=== PATIENT | female | born 1965 | race Caucasian/White ===

== ENCOUNTER → 2016-07-30 | Outpatient (CLI) | payer BC ==
[2016-07-30 09:42] LABS: CH 31.7; CHCM 33.8; HCT 42.1 % (34.0-46.0); HDW 2.47; MCH 31.3 pg (25.0-35.0); MCHC 33.3 g/dL (31.0-37.0); Mean Platelet Volume 8.6; RBC 4.48 m/uL (3.80-5.40); RDW 13.2 % (11.5-15.5); WBC 4.8 k/uL (3.8-10.6)
[2016-07-30 09:59] LABS: ALT 43 U/L (9-52); AST 36 U/L (14-36); Alkaline Phosphatase 66 U/L (38-126); Anion Gap 10 mmol/L; Blood Urea Nitrogen 18 mg/dL (7-17); Calcium 9.8 mg/dL (8.4-10.2); Carbon Dioxide 30 mmol/L (22-30); Chloride 102 mmol/L (98-107); Glucose 96 mg/dL (74-99); Iron 128 ug/dL (37-170); Non-African American GFR(MDRD) >60 (>60 ml/min/1.73 sqM); Potassium 4.6 mmol/L (3.5-5.1); Sodium 142 mmol/L (137-145); Total Bilirubin 0.7 mg/dL (0.2-1.3); Total Protein 7.6 g/dL (6.3-8.2)
[2016-07-30 10:08] LABS: % Iron Saturation 43.2 % (20-50); Total Iron Binding Capacity 296 ug/dL (265-497)
[2016-07-30 10:16] LABS: Follicle Stimulating Hormone 34.3 mIU/mL
[2016-07-30 10:33] LABS: Estradiol 58 pg/mL
[2016-07-30 10:47] LABS: Vitamin B12 606 pg/mL (239-931)
== END | disposition home or self-care (01) ==
LOC: LABWHC1 08:32
PROVIDERS: ATTEND Clinical Nurse Specialist Women's Health
DX: R53.83 Other fatigue (principal); R61 Generalized hyperhidrosis
CPT/HCPCS: 36415; 80053; 82306; 82607; 82670; 82728; 83001; 83540; 83550; 84439; 84443; 84481; 85027; 86376

== ENCOUNTER → 2016-09-14 | Outpatient (CLI) | payer BC ==
--- NOTE | 2016-09-15 13:07 | MM ---
Reason for exam: follow-up at short interval from prior study. Last mammogram was performed 6 months ago. History: Family history of breast cancer in aunt at age 70 and breast cancer in mother at age 83. Took hormonal contraceptives for 2 years beginning at age 23. Physical Findings: Nurse did not find any significant physical abnormalities on exam. MG Diagnostic Mammo LT w CAD CC and MLO view(s) were taken of the left breast. Prior study comparison: March 16, 2016, bilateral MG screening mammo w CAD. February 10, 2015, bilateral MG screening mammo w CAD. January 24, 2014, bilateral MG screening mammo w CAD. The breast tissue is heterogeneously dense. This may lower the sensitivity of mammography. Heterogenous grouped calcifications continue to show slight interval increase, new from 2012. These results were verbally communicated with the patient and result sheet given to the patient on 09/15/16. ASSESSMENT: Suspicious, BI-RAD 4 RECOMMENDATION: Surgical consultation and stereotactic core biopsy of the left breast. Called Dr. Castelan with mammographic findings and has scheduled an appointment for the patient for 09/28/16 at 10:[address] Moran. Biopsy scheduled for 09/20/16 at 10:00. PRELIMINARY REPORT CALLED AND FAXED TO DR. MORAN ON 09/15/16 AT 300/TMP.
== END | disposition home or self-care (01) ==
LOC: RADMAMWWP 15:37
PROVIDERS: ATTEND Obstetrics & Gynecology
DX: R92.8 Other abnormal and inconclusive findings on diagnostic imaging of breast (principal)

== ENCOUNTER → 2016-09-20 | Day surgery (SDC) | payer BC ==
[~2016-09-20] MED LIST: BACITRACIN OINT 1 EACH PACKET TOPICAL ONE; LIDOCAINE 1% INJ 10MG/ML (20 ML MDV) ONE
--- NOTE | 2016-09-20 11:40 | MM ---
Stereotactic Mammotome core biopsy left breast. HISTORY: Calcifications left breast The calcifications in question within the left breast were targeted by the undersigned. Procedure was performed by the undersigned. Informed consent was obtained and all of the patients questions were answered. The standard sterile technique was utilized and appropriate local anesthesia was obtained with 1% licocaine. Mammotome probe was advanced and multiple core samples were obtained and sent to pathology for interpretation. Microclip marker was deployed at the site of biopsy. Post procedural mammogram demonstrates appropriate deployment of radiopaque clip marker. The patient tolerated the procedure well and left the department in stable condition. Pathology results are pending. IMPRESSION: Successful stereotactic core biopsy left breast with pathology results pending. Pathology Results: High Risk BREAST, LEFT, STEREOTACTIC CORE BIOPSY: PENDING CONSULTATION, SEE ADDENDUM/ FINAL DIAGNOSIS. ADDENDUM REPORT BREAST, LEFT, STEREOTACTIC CORE BIOPSY ([id number]; A1; 09/20/16): ATYPICAL DUCTAL HYPERPLASIA (ADH) WITH MICROCALCIFICATIONS. Recommendation Surgical consult of the left breast. MILES
== END ==
LOC: RADMAMWWP 09:22
PROVIDERS: ATTEND Surgery
DX: N60.92 Unspecified benign mammary dysplasia of left breast (principal); N64.89 Other specified disorders of breast; R92.8 Other abnormal and inconclusive findings on diagnostic imaging of breast; Z88.2 Allergy status to sulfonamides
CPT/HCPCS: 88305; 88342; 88341; 19081; A4648; J2001

== ENCOUNTER → 2016-10-01 | Outpatient (CLI) | payer BC ==
--- NOTE | 2016-10-01 13:18 | USB ---
Reason for exam: clinical finding. History: Patient has history of high-risk lesion on a previous biopsy at age 51. Family history of breast cancer in aunt at age 70 and breast cancer in mother at age 83. High risk MG stereo VAD BX LT of the left breast, September 20, 2016. Took hormonal contraceptives for 2 years beginning at age 23. Physical Findings: Nurse did not find any significant physical abnormalities on exam. US Breast LT Left breast ultrasound includes all four quadrants, the retroareolar region and axilla. Finding demonstrates a 3 x 2 x 2mm oval, cystic lesion at 12 o'clock and a 10 x 4 x 10mm irregular, solid, hypoechoic, vascular lesion at 12 o'clock. These results were verbally communicated with the patient and result sheet given to the patient on 10/01/16. ASSESSMENT: Probably benign, BI-RAD 3 RECOMMENDATION: Needle biopsy of the left breast. (high risk lesion, scheduled)
== END | disposition home or self-care (01) ==
LOC: RADUSWWP 12:18
PROVIDERS: ATTEND Surgery
DX: R92.0 Mammographic microcalcification found on diagnostic imaging of breast (principal); R92.8 Other abnormal and inconclusive findings on diagnostic imaging of breast

== ENCOUNTER 2016-10-06 11:38 | Day surgery (SDC) | payer BC ==
[2016-09-30 15:11] VITALS: BMI 22.8
[~2016-10-06 11:38] MED LIST changes: +ALPRAZolam 0.5 MG TAB PO PRN; -BACITRACIN OINT 1 EACH PACKET TOPICAL ONE; +DEXAMETHASONE SOD PHOSPHATE 10 MG/ML 1 ML VIAL IV ONE; +HEPARIN SODIUM,PORCINE 5,000 UNIT/ML 1 ML VIAL SQ ONE; +HYDROmorphone 1 MG/ML 1 ML SYRINGE IVP PRN; +LACTATED RINGERS 1,000 ML IV SCH; -LIDOCAINE 1% INJ 10MG/ML (20 ML MDV) ONE; +MIDAZOLAM 2 MG/2 ML VIAL IV PRN; +ONDANSETRON 4 MG/2 ML VIAL IVP ONE; +Pre Op ABX Message 1 EACH MISC MISCELLANE ONE
[2016-10-06] MEDS ORDERED: ALPRAZolam 0.5 MG TAB PO STA (12:02)
[2016-10-06] MEDS ORDERED: LIDOCAINE 1% 20 ML VIAL (10MG/ML) FOR IV START INTRADERMA ONE (12:15)
[2016-10-06 13:04] VITALS: TEMP 97.3
[2016-10-06 13:17] VITALS: RESP 16
[2016-10-06] MEDS ORDERED: SCOPOLAMINE 1.5MG/72HR PATCH TRANSDERM ONE (13:44)
[2016-10-06] MEDS ORDERED: LACTATED RINGERS 1,000 ML IV ONE (14:52)
[2016-10-06] MEDS ORDERED: PROPOFOL 10 MG/ML 20 ML VIAL IV ONE ×2 (15:25)
[2016-10-06] MEDS ORDERED: MIDAZOLAM 2 MG/2 ML VIAL ONE (15:25)
[2016-10-06] MEDS ORDERED: BUPIVACAIN-EPI 0.25%-1:200,000 30 ML VIAL SQ ONE (15:48)
--- NOTE | 2016-10-06 16:36 | P.OP ---
Date of Procedure: 10/06/16 Preoperative Diagnosis: Left breast atypical ductal hyperplasia at 12 o clock Postoperative Diagnosis: Same Procedure(s) Performed: Left breast wire localization biopsy at 12 o'clock position Total tissue removed = 8gm Implants: Anesthesia: MAC, local Surgeon: Laurie Moran Estimated Blood Loss (ml): 5 Pathology: other Disposition: PACU Indications for Procedure: 51 years old female status post abnormal mammogram, status post core biopsy which shows atypical ductal hyperplasia. Informed consent obtained and patient elected to undergo lumpectomy with wire localization Operative Findings: Left breast wire localization lumpectomy. Xray of the specimen confirmed that the clip and wire within the excised specimen Description of Procedure: The mammogram films from wire localization biopsy were reviewed. The patient was brought to the operating room and placed in supine position with both arms out. IV sedation was given as per anesthesia team. The excess wire was cut and the left breast was prepped using ChloraPrep. Sterile drapes were applied. A timeout was performed to verify correct patient, correct procedure and correct side. Patient was confirmed to receive perioperative IV antibiotics, heparin 5000 units subcutaneous injection for DVT prophylaxis and bilateral SCDs. A 4.3 cm horizontal skin incision was made along natural skin crease in the superior areola border. Skin flap was raised in the direction of wire. The wire entered the breast at 12 o click superiorly . A 2.3 cm circumferential breast tissue was removed around the wire and the tip of the wire was included in the specimen. The specimen was then labeled with different colors as per the protocol. It was sent off as a specimen for pathology. The resulting defect was irrigated with normal saline and checked for hemostasis. The defect measured 4.3x2.3x1cm. This was closed in 2 layers using interrupted sutures of 3-0 Vicryl followed by running subcuticular stitches of 4-0 Monocryl. Dermabond skin glue was applied. The sponge, instrument and needle count were correct 2. Phone formation received during surgery that the area of concern along with the clip and wire was included in the specimen. Patient tolerated the procedure well and was taken to post anesthesia care unit in stable condition. Final Pathologic Diagnosis BREAST, LEFT, IMAGE GUIDED WIRE LOCALIZATION AND RESECTION: PENDING CONSULATION. SEE ADDENDUM/FINAL DIAGNOSIS. Notes Review of the specimen demonstrates biopsy site change with scar and fibrocystic change including stromal fibrosis, cyst formation, adenosis, columnar cell change and duct hyperplasia. In one of the sections there are ducts containing hyperplastic duct epithelial cells creating a micropapillary pattern with cellular uniformity and a fairly well defined architecture. This is adjacent to the biopsy site. The cells themselves are low grade in appearance. Though this area is favored to not reach the diagnostic criteria for low grade duct carcinoma in situ, given the possibility of low grade duct carcinoma in situ and the therapeutic implications, the case is being sent to the [facility] for their expert opinion and the results will be issued in an addendum. The slides from the patients earlier biopsy ([id number]), that were previously seen at the [facility], will also be included. The results will be issued in addendum. @ 2027. Gross Description Specimen is labeled left breast biopsy and consists of an 8 gram oriented left lumpectomy specimen that measures 4.3 cm from superior to inferior, 2.3 cm from medial to lateral and 1 cm from anterior to posterior. A wire localization needle enters on the superior aspect and the specimen is accompanied by a radiograph and a picture, both showing a circled radiologic clip. The specimen is sufficiently inked by surgeon as follows: anterior blue , inferior green, superior black, medial yellow, lateral orange, posterior shannan. The specimen is serially sectioned beginning with the end opposite the needle insertion (green ink). Cut surfaces show areas of dense white fibrous tissue comprising approximately 40% of the parenchyma, interspersed with grossly normal yellow adipose tissue. Within the fibrous tissue, predominantly on the superior half of the specimen are multiple punctate hemorrhagic area consistent with possible previous core biopsy sites. The radiologic clip is identified within a core biopsy site (cassette 3). A distinct lesion or mass is not identified or palpated. The specimen is submitted entirely and sequentially from superior to inferior in 9 cassettes with two cross sections each in cassettes 1-3, one cross section each in cassette 4-7, two cross sections each in cassettes 8-9. 9CFNS. (VH) Fixation Time SPECIMEN FIXATIVE TYPE: SP Buffered 10% Formalin COLLECTION TO FIXATION TIME: Less than 1 hour FORMALIN FIXATION TIME: 27 hours, 6 minutes (In Fixative: 16:24, 10/06/16. Out of Fixative: 7:30 PM, , 10/07/16.) Primary invasive carcinomas are referred to the reference laboratory for ER, MT and HER2 testing and DCIS for ER and MT. Reference laboratory will automatically reflex equivocal IHC HER2 results based on CAP/ASCO HER2 Guidelines. Test results are reportedly separately. CAP/ASCO HER2 guidelines recommend that the tissue fixation window should be between 6 and 72 hours. When fixation time is prolonged beyond the 72 hours, the prolonged fixation could be a possible cause for negative results, and alternative testing methods, such as FISH, should be considered if the HER2 IHC is negative. ADDENDUM REPORT BREAST, LEFT, LUMPECTOMY ([id number]; A1-9; 10/06/2016): SEVERE ATYPICAL DUCTAL HYPERPLASIA (ADH). BIOPSY SITE CHANGES. Comment This case was sent in consultation to the [facility] and reviewed by Dr. Yazmin Casanova. Her diagnosis is as above and comments follow. We have reviewed the slides from the left breast lumpectomy from [facility]. Per your provided history, she is a 51 year-old female with atypical ductal hyperplasia diagnosed on biopsy which was reviewed here previously as [id number]- [id number]. Histologic sections from the lumpectomy demonstrate four ducts lined by a cellular proliferation of monotonous epithelial cells with low-grade cytologic atypia forming architecturally complex bridging and micropapillary fronds within the area of the biopsy site. As in the prior biopsy, the quantitative amount of atypia is between 0.2 and 0.3 cm, and occurs in a somewhat discontinuous fashion. The atypical proliferation is also admixed with columnar cell hyperplasia. It is understood that borderline cases such as this is somewhat subjective and dependent on individual thresholds. In this particular case, the quantity and quality of atypia does not meet my threshold for a diagnosis of ductal carcinoma in situ and we feel this is best classified as severe ADH. 27
[2016-10-06] MEDS ORDERED: HYDROcodone/APAP 5-325MG 1 EACH TAB PO ONE (16:52)
[2016-10-06 17:28] VITALS: BP 124/70; PULSE 50
--- NOTE | 2016-10-07 08:32 | MM ---
EXAMINATION TYPE: MG pre op needle loc LT DATE OF EXAM: 10/06/2016 1:41 PM COMPARISON: 09/20/2016 CLINICAL HISTORY: Abnormal stereotactic biopsy TECHNIQUE: Needle localization with wire placement and surgical excision of area of concern in the left breast. FINDINGS: The procedure of needle localization with wire placement and than surgical excision was explained to the patient. Benefits, alternatives, and risks were discussed. An informed consent was then obtained. The shortest pathway for procedure was chosen. Shortest pathway was chosen. The overlying skin was prepped and draped in usual sterile fashion. Lidocaine buffered with bicarbonate was used as anesthetic into the skin and subcutaneous tissue up to the level of area of concern. A 5 cm needle was used. It was placed via a superior approach under mammographic guidance. Subsequent 90 degrees mammogram show the needle to be in satisfactory position relative to the targeted area. At this point, wire was placed and the needle was withdrawn. The wire was fixed to patient's skin. Images were marked for surgeon. The patient tolerated the procedure well without any immediate complication. The patient was kept in the radiology department for short stay after the procedure and then taken to surgery for surgical excision. Targeted calcifications and stereotactic clip and wire are identified in specimen mammogram. The patient was kept in hospital for short stay after the procedure and then discharged home in stable condition. IMPRESSION: Successful, uncomplicated needle localization with wire placement and surgical excision of area of concern in the left breast, full pathology results to follow. Pathology Results: High Risk BREAST, LEFT, IMAGE GUIDED WIRE LOCALIZATION AND RESECTION: PENDING CONSULTATION. SEE ADDENDUM/FINAL DIAGNOSIS. ADDENDUM REPORT BREAST, LEFT, LUMPECTOMY ([id number]; A1-9; 10/06/2016): SEVERE ATYPICAL DUCTAL HYPERPLASIA (ADH). BIOPSY SITE CHANGES. Recommendation Follow up mammogram of the left breast in 6 months. MILES
== END 2016-10-06 17:53 | disposition home or self-care (01) ==
LOC: OR 11:38
PROVIDERS: ATTEND Surgery
DX: N60.92 Unspecified benign mammary dysplasia of left breast (principal); R92.8 Other abnormal and inconclusive findings on diagnostic imaging of breast; Z80.3 Family history of malignant neoplasm of breast; Z88.2 Allergy status to sulfonamides; Z79.51 Long term (current) use of inhaled steroids; Z79.899 Other long term (current) drug therapy
CPT/HCPCS: 81025; 88307; 76098; 19281; J2250; J1644; J1100; J2405; J2704

== ENCOUNTER → 2016-10-18 | Outpatient (CLI) | payer BC ==
[2016-10-18 12:31] LABS: Basophils % (A) 0 %; CH 31.9; CHCM 34.8; Eosinophils % (A) 0 %; HCT 43.2 % (34.0-46.0); HDW 2.52; HGB 14.9 gm/dL (11.4-16.0); Luc # (Auto) 0.18; Luc % (Auto) 3; Lymphocytes # (A) 1.2 k/uL (1.0-4.8); Lymphocytes % (A) 17 %; MCH 31.6 pg (25.0-35.0); MCHC 34.4 g/dL (31.0-37.0); Mean Platelet Volume 7.3; Monocytes # (A) 0.5 k/uL (0-1.0); Monocytes % (A) 7 %; Neutrophils % (A) 73 %; RDW 13.1 % (11.5-15.5); WBC 6.9 k/uL (3.8-10.6); WBC (Perox) 7.18
== END | disposition home or self-care (01) ==
LOC: LABPAT 11:37
PROVIDERS: ATTEND Obstetrics & Gynecology
DX: Z01.818 Encounter for other preprocedural examination (principal); N84.0 Polyp of corpus uteri; N92.0 Excessive and frequent menstruation with regular cycle
CPT/HCPCS: 85025

== ENCOUNTER 2016-10-25 09:38 | Day surgery (SDC) | payer BC ==
[2016-10-20 09:21] VITALS: BMI 23.0
--- NOTE | 2016-10-21 18:08 | HP ---
DATE OF SURGERY: October 25, 2016 This is a 51-year-old white female, 4, para 3-0-1-3, who presented to the office with a history of dysfunctional uterine bleeding. Patient states that menses have been very irregular, occurring every 2 to 3 weeks in interval, lasting 4 to 5 days in duration. Office endometrial biopsy was performed on 10/04/2016, pathology report revealing fragments of breakdown endometrium with disordered proliferative features and features suggestive of an endometrial polyp with glandular disorder. After thorough consultation, patient has elected to proceed with D&C and hysteroscopy along with polypectomy. She is aware of the risks, benefits, and alternatives of this plan, including the risks and benefits of anesthesia. REVIEW OF SYSTEMS: Otherwise negative. PAST MEDICAL HISTORY: Unremarkable. PAST SURGICAL HISTORY: section x3: 1990, 1992, 1995. CURRENT MEDICATIONS: 1. Lysine daily. 2. Motrin p.r.n. 3. Terazol vaginal cream p.r.n. 4. Vitamin C and D daily. ALLERGIES INCLUDE BACTRIM TO WHICH SHE REPORTS A SKIN RASH, ERYTHROMYCIN TO WHICH SHE REPORTS A RED THROAT AND SULFA TO WHICH SHE REPORTS A SKIN RASH. FAMILY HISTORY: Significant for breast cancer in the patient's mother. REPRODUCTIVE HISTORY: Patient has had 1 spontaneous miscarriage, 3 live-born term deliveries, all via . SOCIAL HISTORY: The patient is . She has never been a smoker. She enjoys social alcohol, but denies any recreational drug use. On exam, this is a pleasant white female who is 4 feet 11 inches, 116 pounds, BMI 23. Vital signs are stable and she is afebrile. This is including a blood pressure of 144/70. The general exam reveals a healthy individual, HEENT is negative for thyromegaly or lymphadenopathy. Pharynx is clear. Dentition is good. The neck is soft and supple with good range of motion. The chest is clear to auscultation in all clements anteriorly and posteriorly. The breast exam reveals recent lumpectomy, well-healed scar. No obvious other skin changes, adenopathy or nipple discharge. Cardiac exam reveals regular rate and rhythm with no murmur, click or rub. The abdomen is soft and nontender. No organosplenomegaly. No CVA tenderness. No hernias present. External genitalia: The tissues are within normal limits, well estrogenized. Cervix is nulliparous. Pap smear is up to date and normal. The uterus is small, mobile, nontender, smooth. Adnexa are negative bilaterally. Rectal reveals good sphincter tone. No hemorrhoids or defects appreciated. No inguinal adenopathy. Lymphatic reveals no lymphadenopathy to rule out. Skin inspection reveals no rashes. No lesions. No areas of discoloration. Neurologic is fully intact. Patient is oriented x3 with good judgment, mood and affect. IMPRESSION: Dysfunctional uterine bleeding, endometrial biopsy revealing suggestion of polyp with glandular dysplasia. Patient is consented for hysteroscopy, dilation and curettage, polypectomy. PLAN: We will proceed with surgery at [facility] as scheduled on 10/25/2016. ADDENDUM: Most recent Pap smear is showing insufficient cells. Pap smear will be performed at the time of surgery as well.
[~2016-10-25 09:38] MED LIST changes: -ALPRAZolam 0.5 MG TAB PO PRN; -HEPARIN SODIUM,PORCINE 5,000 UNIT/ML 1 ML VIAL SQ ONE; +SCOPOLAMINE 1.5MG/72HR PATCH TRANSDERM ONE
[2016-10-25] MEDS ORDERED: LIDOCAINE 1% 20 ML VIAL (10MG/ML) FOR IV START INTRADERMA ONE (10:20)
[2016-10-25] MEDS ORDERED: PROPOFOL 10 MG/ML 20 ML VIAL IV ONE (11:16)
[2016-10-25] MEDS ORDERED: MIDAZOLAM 2 MG/2 ML VIAL ONE (11:16)
[2016-10-25] MEDS ORDERED: LIDOCAINE 1% INJ 10MG/ML (20 ML MDV) ONE (11:16)
[2016-10-25] MEDS ORDERED: fentaNYL (PF) 50 MCG/ML 2 ML AMP ONE (11:16)
[2016-10-25] MEDS ORDERED: KETOROLAC 30 MG/ML 1 ML VIAL ONE (11:16)
--- NOTE | 2016-10-25 11:45 | P.OP ---
Date of Procedure: 10/25/16 Preoperative Diagnosis: Menorrhagia, office endometrial biopsy suspicious for polyps. Unsatisfactory Pap. Postoperative Diagnosis: No evidence of fibroids, proliferative appearing tissue. Hysteroscope. Procedure(s) Performed: Repeat Pap smear, hysteroscopy, D&C Implants: Anesthesia: GETA Surgeon: Mariaa Castelan Estimated Blood Loss (ml): 50 IV fluids (ml): 600 Urine output (ml): 150 Pathology: other (Pap smear specimen, intrauterine curettings) Condition: stable Disposition: PACU Indications for Procedure: Operative Findings: Description of Procedure: Patient is brought to the [facility] and suite where general anesthetic is administered without difficulty. She's placed in the dorsal lithotomy position. Urine hCG is negative. The appropriate timeout was performed to assure proper patient procedure identification. Antibiotics are not deemed necessary. The cervix is visualized with a speculum, and a Pap smear is performed. The cervix vagina and perineal bodies are then prepped and draped in usual sterile fashion. Examination under anesthesia reveals a small anteverted uterus, negative adnexa bilaterally. Bladder is drained for approximately 250 mL of clear yellow urine. The cervix is grasped with a double -tooth tenaculum on the anterior lip. Uterus sounds to a depth of 10 cm in the anteverted position. Cervix is dilated using Hanks dilators gently and systematically. Hysteroscope was introduced and fluid is infused into the cavity. The cavity is distended and inspected. No obvious polypoid tissue is noted, there is large amount of proliferative appearing tissue. No fibroids, no septa, no defects. Hysteroscope was removed. The cervix is then dilated to 18 mm. A medium sharp curette is used and the cavity is early curettaged for a moderate amount of tissue. The "cry of the uterus" is appreciated. Polyp forceps are then used to assure that the cavity is completely evacuated. Specimen is sent to pathology. Double-tooth tenaculum was removed, the cervix is clean and dry. All sponge needle and enhancement counts are correct. Patient is brought back to recovery room in very good condition with stable vital signs including blood pressure 98/59, pulse 48. She is given Toradol prior to leaving the operative suite. She will follow-up with me in the office in 2 weeks.
[2016-10-25 11:53] VITALS: TEMP 97.2
[2016-10-25 13:28] VITALS: BP 118/76; PULSE 69; RESP 16
== END 2016-10-25 13:40 | disposition home or self-care (01) ==
LOC: OR 09:38
PROVIDERS: ATTEND Obstetrics & Gynecology
DX: N85.01 Benign endometrial hyperplasia (principal); N93.8 Other specified abnormal uterine and vaginal bleeding; Z79.899 Other long term (current) drug therapy; Z88.2 Allergy status to sulfonamides
CPT/HCPCS: 81025; 88305; 58558; J2250; J1100; J2405; J2001; J3010; J1885; J2704

== ENCOUNTER 2016-12-17 08:48 | Emergency (ER) | payer BC ==
--- NOTE | 2016-12-17 09:12 | ED ---
Female Urogenital HPI - General Chief complaint: Vaginal Bleeding Stated complaint: bleeding Time Seen by Provider: 12/17/16 09:01 Source: patient, RN notes reviewed Mode of arrival: ambulatory Limitations: no limitations - History of Present Illness Initial comments: This a 51-year-old female presents emergency Department chief complaint vaginal bleeding. Patient said vaginal bleeding for the last 21 days. Patient states that over the last 3 days she's had increased bleeding. She states anytime she sits on the toilet she states the blood is porch out of her Antivert large clots. She is had some lightheadedness feeling last couple days and was concerning and didn't call her COMPETITIVE [employer] Dr. Castelan who center in for evaluation requesting pelvic ultrasound and CBC. Patient had D&C in October because of bleeding at that time. Patient reportedly has early stage breast cancer and cannot receive any progesterone and estrogen patient denies any dysuria, hematuria, chest pain, shortness breath, exertional shortness breath, nausea, vomiting, diarrhea constipation. Last Menstrual Period: 05/02/11 - Related Data Home Medications Medication Instructions Recorded Confirmed Cholecalciferol [Vitamin D3] 1,000 unit PO DAILY 12/17/16 12/17/16 Ibuprofen [Motrin] 400 mg PO Q6HR PRN 12/17/16 12/17/16 Allergies Allergy/AdvReac Type Severity Reaction Status Date / Time Sulfa (Sulfonamide Allergy Rash/Hives Verified 12/17/16 10:05 Antibiotics) Review of Systems ROS Statement: Those systems with pertinent positive or pertinent negative responses have been documented in the HPI. ROS Other: All systems not noted in ROS Statement are negative. Past Medical History Past Medical History: Cancer Additional Past Medical History / Comment(s): hx skin cancer History of Any Multi-Drug Resistant Organisms: None Reported Past Surgical History: Breast Surgery, Section Additional Past Surgical History / Comment(s): breast biopsy left breast Past Anesthesia/Blood Transfusion Reactions: Motion Sickness Past Psychological History: No Psychological Hx Reported Smoking Status: Never smoker Past Alcohol Use History: None Reported Past Drug Use History: None Reported - Past Family History Mother Family Medical History: Cancer Father Family Medical History: Cancer General Exam General appearance: alert, in no apparent distress Respiratory exam: Present: normal lung sounds bilaterally. Absent: respiratory distress, wheezes, rales, rhonchi, stridor Cardiovascular Exam: Present: regular rate, normal rhythm, normal heart sounds. Absent: systolic murmur, diastolic murmur, rubs, gallop, clicks GI/Abdominal exam: Present: soft, tenderness ( minimal left lower quadrant), normal bowel sounds. Absent: distended, guarding, rebound, rigid Neurological exam: Present: alert, oriented X3, CN II-XII intact Skin exam: Present: warm, dry, intact, normal color. Absent: rash Course Vital Signs 12/17/16 08:50 Temperature 98.8 F Pulse Rate 68 Respiratory 18 Rate Blood Pressure 154/83 O2 Sat by Pulse 100 Oximetry Medical Decision Making - Medical Decision Making 51-year-old female presented for vaginal bleeding for 21 days worse last 3 days. Patient's hemoglobin is 14.4 an there is no abnormal thickness to endometrial lining. I did discuss case with Dr. Castelan her [employer] who sent her here. She did state that she has a follow-up appointment on Tuesday states that there is no emergent action needs to take at this time. Patient updated and results of ultrasound and lab work. Return parameters were discussed. - Lab Data Result diagrams: 12/17/16 09:02 Lab Results 12/17/16 Range/Units 09:02 WBC 6.8 (3.8-10.6) k/uL RBC 4.49 (3.80-5.40) m/uL Hgb 14.4 (11.4-16.0) gm/dL Hct 42.7 (34.0-46.0) % MCV 95.2 (80.0-100.0) fL MCH 32.0 (25.0-35.0) pg MCHC 33.6 (31.0-37.0) g/dL RDW 13.4 (11.5-15.5) % Plt Count 278 (150-450) k/uL Neutrophils % 75 % Lymphocytes % 16 % Monocytes % 6 % Eosinophils % 0 % Basophils % 0 % Neutrophils # 5.1 (1.3-7.7) k/uL Lymphocytes # 1.1 (1.0-4.8) k/uL Monocytes # 0.4 (0-1.0) k/uL Eosinophils # 0.0 (0-0.7) k/uL Basophils # 0.0 (0-0.2) k/uL Disposition Clinical Impression: Dysfunctional uterine bleeding Disposition: HOME SELF-CARE Condition: Stable Instructions: Dysfunctional Uterine Bleeding (ED) Additional Instructions: Please return to the Emergency Department if symptoms worsen or any other concerns. Referrals: Mirian Lopez DO [Primary Care Provider] - 1-2 days Time of Disposition: 10:23
[2016-12-17 09:31] LABS: Basophils % (A) 0 %; CH 32.6; CHCM 34.4; Eosinophils % (A) 0 %; HCT 42.7 % (34.0-46.0); HDW 2.42; HGB 14.4 gm/dL (11.4-16.0); Luc # (Auto) 0.14; Luc % (Auto) 2; Lymphocytes # (A) 1.1 k/uL (1.0-4.8); Lymphocytes % (A) 16 %; MCHC 33.6 g/dL (31.0-37.0); MCV 95.2 fL (80.0-100.0); Mean Platelet Volume 7.9; Monocytes # (A) 0.4 k/uL (0-1.0); Monocytes % (A) 6 %; Neutrophils # (A) 5.1 k/uL (1.3-7.7); Neutrophils % (A) 75 %; RBC 4.49 m/uL (3.80-5.40); RDW 13.4 % (11.5-15.5); WBC 6.8 k/uL (3.8-10.6); WBC (Perox) 7.03
[2016-12-17 09:41] LABS: Anion Gap 11 mmol/L; Blood Urea Nitrogen 13 mg/dL (7-17); Carbon Dioxide 24 mmol/L (22-30); Chloride 105 mmol/L (98-107); Glucose 96 mg/dL (74-99); Non-African American GFR(MDRD) >60 (>60 ml/min/1.73 sqM); Sodium 140 mmol/L (137-145)
--- NOTE | 2016-12-17 10:05 | US ---
EXAMINATION TYPE: US pelvis limited transvag DATE OF EXAM: 12/17/2016 COMPARISON: NONE CLINICAL HISTORY: Pain. Left pelvic pain and h/o bleeding, polyp removal October 2016, bleeding for 21 d ays TECHNIQUE: TA/TV Date of LMP: unknown EXAM MEASUREMENTS: Uterus: 10.4 x 5.3 x 5.9 cm Endometrial Stripe: 0.8 cm Right Ovary: 2.6 x 1.7x 1.4 cm Left Ovary: 4.9 x 4.5 x 3.4 cm 1. Uterus: Anteverted appearance of two fundal fibroids, right sided = 3.7cm, left sided = 1.8cm 2. Endometrium: wnl 3. Right Ovary: wnl 4. Left Ovary: 4.2cm simple appearing cyst, only seen transabdominally 5. Bilateral Adnexa: wnl 6. Posterior cul-de-sac: wnl IMPRESSION: 1. Simple appearing left ovarian cyst measuring 4.2 cm. 2. Intramural uterine leiomyomas measuring 3.7 cm and 1.8 cm. 3. Endometrial thickness is within normal limits for a premenopausal female.
[2016-12-17 10:37] VITALS: BP 137/82; PULSE 74; RESP 20; TEMP 98.3
== END 2016-12-17 10:37 | disposition home or self-care (01) ==
LOC: EC 08:48
DX: N93.8 Other specified abnormal uterine and vaginal bleeding (principal); C50.919 Malignant neoplasm of unspecified site of unspecified female breast; Z85.828 Personal history of other malignant neoplasm of skin; Z79.899 Other long term (current) drug therapy; Z88.2 Allergy status to sulfonamides
CPT/HCPCS: 36415; 76830; 76857; 80048; 85025; 99284

== ENCOUNTER → 2017-10-03 | Outpatient (CLI) | payer BC ==
--- NOTE | 2017-10-03 15:58 | CT ---
EXAMINATION TYPE: CT abdomen pelvis w con DATE OF EXAM: 10/03/2017 COMPARISON: NONE HISTORY: Hysterectomy . Left lower quadrant pain. Excessive gas. Rectal pressure on and off. CT DLP: 943 mGycm CONTRAST: CT scan of the abdomen and pelvis is performed with Oral Contrast and with IV Contrast, patient injec barron with 100 mL of Isovue M300. FINDINGS: LUNG BASES-: No visible nodule. No infiltrate. LIVER/GB: No calcified gallstones. No solid space occupying hepatic lesion. Tiny sub-5 mm hepatic cysts noted estimated at approximately 6 in number. Biliary tree is of normal caliber. PANCREAS: No inflammation. No distinct mass. SPLEEN: No splenic enlargement. No lesion seen. ADRENALS: No nodule. No thickening. KIDNEYS/BLADDER: No hydronephrosis. No nephrolithiasis. No distinct renal mass. Urinary bladder g rossly unremarkable. BOWEL: Normal appendix. Normal bowel caliber. No inflammation. GENITAL ORGANS: Left ovarian cystic lesion measuring 3.9 cm. The uterus appears to have been surgica lly removed. No right adnexal mass appreciated. LYMPH NODES: No greater than 1cm abdominal or pelvic lymph nodes are appreciated. AORTA: No significant abnormality. OSSEOUS STRUCTURES: No significant abnormality is seen. OTHER: No significant additional abnormality is seen. IMPRESSION: 1. Nonspecific left ovarian cystic lesion. Consider ultrasound correlation. Hysterectomy changes. 2. Tiny hepatic cysts.
== END | disposition home or self-care (01) ==
LOC: RADCTMAIN 13:49
PROVIDERS: ATTEND Family Medicine
DX: N83.202 Unspecified ovarian cyst, left side (principal); K76.89 Other specified diseases of liver; Z90.710 Acquired absence of both cervix and uterus
CPT/HCPCS: 74177; Q9967

== ENCOUNTER 2017-12-09 09:50 | Day surgery (SDC) | payer BC ==
[2017-12-07 08:07] VITALS: BMI 23.4
[~2017-12-09 09:50] MED LIST changes: -DEXAMETHASONE SOD PHOSPHATE 10 MG/ML 1 ML VIAL IV ONE; -HYDROmorphone 1 MG/ML 1 ML SYRINGE IVP PRN; +LIDOCAINE 1% 20 ML VIAL (10MG/ML) FOR IV START INTRADERMA PRN; -ONDANSETRON 4 MG/2 ML VIAL IVP ONE; -Pre Op ABX Message 1 EACH MISC MISCELLANE ONE; -SCOPOLAMINE 1.5MG/72HR PATCH TRANSDERM ONE
[2017-12-09 10:29] VITALS: RESP 16; TEMP 98
[2017-12-09] MEDS ORDERED: PROPOFOL 10 MG/ML 20 ML VIAL IV ONE (10:58)
[2017-12-09] MEDS ORDERED: LIDOCAINE 1% INJ 10MG/ML (20 ML MDV) ONE (10:58)
--- NOTE | 2017-12-09 11:17 | P.PCN ---
Date of Procedure: 12/09/17 Procedure(s) Performed: BRIEF HISTORY: Patient is a 52-year-old pleasant white female, scheduled for an elective colonoscopy as a part of screening for colorectal neoplasia. PROCEDURE PERFORMED: Colonoscopy. PREOPERATIVE DIAGNOSIS: Screening for colon cancer. IV sedation per Anesthesia. PROCEDURE: After informed consent was obtained, the patient, was brought into the endoscopy unit. IV sedation was administered by Anesthesia under continuous monitoring. Digital rectal examination was normal. Initially the Olympus CF- 160 flexible video colonoscope was then inserted in the rectum, gradually advanced into the cecum without any difficulty. Careful examination was performed as the scope was gradually being withdrawn. Ileocecal valve and the appendiceal orifice were visualized and appeared normal. Prep was excellent. Mucosa of the cecum, ascending colon, transverse colon, descending colon, sigmoid colon, and rectum appeared normal. Retroflexion was performed in the rectum and no lesions were seen. The patient tolerated the procedure well. IMPRESSION: Normal-appearing colon from rectum to cecum with no evidence of colorectal neoplasia. RECOMMENDATIONS: Findings of this examination were discussed with the patient as well as a family. She was advised to have a repeat screening colonoscopy in 10 years.
[2017-12-09 11:47] VITALS: BP 140/81; PULSE 77
== END 2017-12-09 12:24 | disposition home or self-care (01) ==
LOC: ORWHC2ENDO 09:50
PROVIDERS: ATTEND Internal Medicine Gastroenterology
DX: Z12.11 Encounter for screening for malignant neoplasm of colon (principal); Z88.2 Allergy status to sulfonamides; Z79.1 Long term (current) use of non-steroidal anti-inflammatories (NSAID); Z79.899 Other long term (current) drug therapy; Z90.710 Acquired absence of both cervix and uterus
CPT/HCPCS: G0121; J2001; J2704